=== PATIENT | female | born 1965 | race Caucasian/White ===

== ENCOUNTER 2024-06-22 15:55 | Emergency (ER) | payer OTHER, SELFPAY ==
[2024-06-22 15:56] VITALS: BP 129/71
[2024-06-22 16:22] LABS: Urine Albumin Negative (Neg - Trace); Urine Bilirubin Negative (Negative); Urine Character Clear (Clear); Urine Color Yellow; Urine Glucose Negative (Negative); Urine Ketone Negative (Negative); Urine Leukocyte Negative (Negative); Urine Nitrite Negative (Negative); Urine Occult Blood 2+ (Negative); Urine Urobilinogen Negative (Neg - 1+)
[2024-06-22 16:25] LABS: % Basophils 0.9 % (0-2); % Eosinophils 2.2 % (0-6); % Immature Granulocytes 0.2 % (0-0.5); % Lymphocytes 35.8 % (20.5-51.1); % Monocytes 9.1 % (1.7-9.3); % Neutrophils 51.8 % (42.2-75.2); Absolute Basophils 0.1 10^3/uL (0-0.2); Absolute Eosinophils 0.1 10^3/uL (0-0.7); Absolute Monocytes 0.5 10^3/uL (0.1-0.6); Absolute Neutrophils 2.8 10^3/uL (1.4-6.5); Hematocrit 38.6 % (37.0-47.0); Mean Corp Hgb Conc. 33.7 g/dL (33.0-37.0); Mean Corpuscular Hgb 30.4 pg (27.0-31.0); Mean Corpuscular Volume 90.4 fL (81.0-99.0); Mean Platelet Volume 10.2 fL (7.4-10.4); Nucleated Red Blood Cells % 0 %; Platelet Count 265 10^3/uL (130-400); Red Blood Cell Count 4.27 10^6/uL (4.20-5.40); Red Cell Dist. Width 13.2 % (11.5-14.5); White Blood Cell Count 5.5 10^3/uL (4.8-10.8)
[2024-06-22 16:34] LABS: Urine Squamous Cell >30 /LPF (Few)
[2024-06-22 16:35] LABS: Urine White Cell 0-2 /HPF (0-5)
[2024-06-22 16:41] LABS: ALT (SGPT) 16 U/L (0-35); AST (SGOT) 21 U/L (14-36); Albumin 5.1 g/dl (3.5-5.0); Alkaline Phosphatase 37 U/L (38-126); Blood Urea Nitrogen 14 mg/dl (7-17); Calcium 9.5 mg/dl (8.4-10.2); Carbon Dioxide 29 mmol/L (22-30); Chloride 103 mmol/L (98-107); Glucose 109 mg/dl (70-99); Lipase 80 U/L (23-300); Potassium 4.5 mmol/L (3.5-5.1); Sodium 141 mmol/L (135-145); Total Bilirubin 0.2 mg/dl (0.2-1.3); Total Protein 7.3 g/dl (6.3-8.2); eGFR > 60.00
[2024-06-22 16:52] VITALS: BMI 19.8
[2024-06-22] MEDS: TORADOL 15 MG IV (17:10)
[2024-06-22] MEDS: NSS 1000 IV (17:10)
--- NOTE | 2024-06-22 17:17 | ED.GENMED ---
History of Present Illness
General
Chief Complaint: Abdominal Pain
Source: patient
Exam Limitations: none
Time Seen by Provider: 06/22/24 16:31
Nursing documentation reviewed up to this point in time: agreed with
History of Present Illness
History of Present Illness:
Patient is a 58-year-old female presenting to the emergency department for evaluation of right lower flank pain. Patient reports very intermittent pain in her right lower abdomen/flank over the past 2 weeks. Pain is sharp and lasts up to 30
minutes at a time. Pain appears to come randomly with no correlation to eating, movement, etc. Patient does take ibuprofen which does ease pain. Patient denies any associated nausea, vomiting, anorexia, chest pain, shortness of breath. Patient
denies any vaginal bleeding or discharge. Patient denies any dysuria, or hematuria. No recent trauma. Today symptoms seem to be persisting so she came to the emergency department for evaluation.
Patient states she has not had a menstrual cycle in the past 6 years.
Past History
Past History
ED Past Medical History: Other
ED Past Surgical History: Other
Social History
Tobacco: Non-smoker
Drug: None
Personal:
Living: with family
Employment: Other
Family History
Family History: Other
Review of Systems
Review of Systems
Allergies reviewed?: Yes
All Other Systems: ROS reviewed and negative except as documented in HPI and ROS
Phy Exam
Physical Exam
Physical Exam:
Vitals: Patient's vital signs are stable. Afebrile
General: Patient is very well appearing, no acute distress
Skin: Warm and dry, no rashes or lesions
Head: Normocephalic, atraumatic
Eyes: Sclera nonicteric. EOMs intact. No nystagmus.
Throat: Protecting airway
Neck: Normal ROM, no cervical spine tenderness, no meningismus
Cardiac: Regular rate and rhythm, no murmurs.
Pulm: Normal respiratory effort, no wheezes, rales, rhonchi heard on exam.
Abdomen: Abdomen soft. Mild tenderness in right lower quadrant without rebound tenderness or guarding. No CVA tenderness. No rash or ecchymoses.
Extremities: No evidence of cyanosis or edema. Palpable DP pulses
Neuro: AAOx3. Grossly intact.
Psychiatric: Normal affect.
Course
Orders/Labs/Results
Orders:
Orders
06/22/24 16:08
Complete Blood Count/With Diff Urgent
Comprehensive Metabolic Panel Urgent
Lipase Urgent
06/22/24 16:14
Urinalysis Reflex To Culture Urgent
Date Specimen was Collected: 06/22/24
Time Specimen was Collected: 16:04
Urine Microscopic Reflex Cult Urgent
06/22/24 17:01
Abdomen/Pelvis wo Contrast CT [CT Abd/pelvis Wo Iv Cont] Urgent
Comment:
Reason For Exam: R flank/ lower abdominal pain
0.9% Sodium Chloride 1000 ml [Nss] 1,000 ml IV BOLUS
Ketorolac [Toradol] 15 mg IV NOW STA
Abnormal Lab Results
06/22/24 06/22/24
16:08 16:14
Glucose 109 H mg/dl
(70-99)
Alkaline Phosphatase 37 L U/L
(38-126)
Albumin 5.1 H g/dl
(3.5-5.0)
Ur Occult Blood Reflex 2+ A
(Negative)
Urine RBC 3-6 A /HPF
(0-2)
06/22/24 16:08
06/22/24 16:08
Vital Signs
Initial and Last Documented VS:
Initial Vital Signs
Temp Pulse Resp BP Pulse Ox
98.4 F 86 14 129/71 100
06/22/24 15:56 06/22/24 15:56 06/22/24 15:56 06/22/24 15:56 12/15/24 15:56
Last Documented Vital Signs
Temp Pulse Resp BP Pulse Ox
98.4 F 86 14 129/71 100
06/22/24 15:56 06/22/24 15:56 06/22/24 15:56 06/22/24 15:56 06/22/24 15:56
MDM/Problems Addressed
Differential Diagnosis Includes:
Not limited to: Kidney stone, pyelonephritis, ovarian cyst, uterine fibroid, muscular strain, constipation, doubt appendicitis
MDM/Problems Addressed:
58-year-old female presents with intermittent right lower abdominal pain for the past 2.5 weeks. No associated fever, nausea/vomiting, anorexia, changes in bowel habits, or urinary symptoms. No vaginal bleeding or discharge. Patient is stable
vital signs on arrival�she is afebrile. On exam�patient is very well-appearing, no apparent distress. Heart regular rate rhythm. Lungs clear bilaterally. Abdomen is soft with very mild tenderness in right lower quadrant without rebound
tenderness or guarding. No CVA tenderness. There is no rashes to suggest zoster. Labs and urinalysis were obtained in triage and reviewed. There is no leukocytosis or any abnormalities on CBC. Chemistry without any clinically significant
abnormalities. Urinalysis obtained and does show few RBCs although no evidence of infection. Differential broad other considerations include possible kidney stone versus other pelvic etiology. Very low suspicion for acute appendicitis given
duration of symptoms and considering patient is afebrile with no leukocytosis. Will obtain CT without contrast for further evaluation. Will give Toradol, fluids and reassess
Chronic conditions affecting care:
N/A
Acute Exacerbation and/or Progression of Chronic Illness:
N/A
*Radiology
Radiology exam reviewed: radiology read reviewed
*Pulse Oximetry
Patient hypoxic: no
*EKG
Interpreted by ED Provider?: NA
*Compensation Intern Interpretation
Rate: Compensation Intern- N/A
*Critical Care Note
Total Time (30-74mins, 75-104mins- exclusive of procedures): Not Applicable
Update Note
Update Note:
Update: Patient does have some improvement in pain following Toradol. CT report reviewed. No evidence of kidney stone bilaterally. Evidence of some constipation which may be contributing to patient's symptoms. Also cystic density noted within
the uterus with broad differential other considerations include fibroids. Outpatient pelvic ultrasound recommended to patient that she will follow closely with COMMUNICATIONS PROFESSOR. Incidental finding of gallstones which patient was made aware of with
information for general surgery if needed in future. Appendix normal.
Unknown exact etiology of patient's symptoms although low suspicion for acute infectious process given patient is afebrile with no leukocytosis. Suspect symptoms likely related to either constipation versus possible fibroid. No acute findings
today. Patient will follow closely with COMMUNICATIONS PROFESSOR for outpatient pelvic ultrasound. Patient aware of hematuria and will have this followed up with COMMUNICATIONS PROFESSOR, as well. Lengthy discussion with patient regarding strict return precautions. Patient
well-appearing and stable for discharge to follow-up outpatient. Case discussed with attending physician.
ED Attending Note
-
Portions of this chart may have been created with voice recognition software.� Occasional wrong word or��sound alike� substitutions may have occurred due to the inherent limitations of voice recognition software.
Discharge Plan
Departure
Patient Disposition: Home (Routine Discharge)
Date of Disposition: 06/22/24
Time of Disposition: 19:31
Patient with high blood pressure during this ER visit?: No
Condition: Good
Covid-19: Not Applicable
Discharge Problem:
Abdominal pain
Instructions: Constipation, Adult (DC), Gallstones (DC), Abdominal Pain
Prescriptions:
No Action
prednisone 20 MG tablet
20 mg PO DAILY Qty: 8 0RF
Rx Instructions:
Take 2 pills once a day for 4 days
Referrals:
Jose L Dockery DO [Family Provider] -
Sukh Stacy MD [Active] - As needed
Activity Restrictions/Additional Instructions:
RETURN TO THE EMERGENCY DEPARTMENT WITH ANY FEVER, INTRACTABLE NAUSEA/VOMITING, SEVERE/WORSENING ABDOMINAL PAIN, SEVERE BACK PAIN, LOSS OF APPETITE, WORSENING IN CURRENT SYMPTOMS, OR ANY OTHER CONCERNS
-As discussed�your imaging did show a degree of constipation. You should take MiraLAX and stool softeners. You should increase your fiber intake and stay well-hydrated at home.
-In addition�there was an cystic area in your uterus noted on CT scan which may be contributing to your symptoms today. This is possible this is a fibroid. As discussed that she should have a pelvic ultrasound performed outpatient with your COMMUNICATIONS PROFESSOR
for further evaluation.
-There was also an incidental finding of gallstones. You can follow-up with a general surgeon for evaluation/management as needed. Contact information has been provided for you above. Please return if you have any severe right upper
quadrant/upper abdominal pain, or persistent nausea/vomiting or fevers.
-You continue to take Motrin/Tylenol as a for discomfort. You can apply a heating pad.
-Follow-up with your COMMUNICATIONS PROFESSOR and primary care for further evaluation of today's symptoms
Monitor symptoms closely and return to the emergency department with any acute worsening/new symptoms or any other concerns
Interventions
Interventions:
*Risk Screen - Suicide Last Done: 06/22/24 15:56
*General Assessment Last Done: 06/22/24 15:56
*Neglect/Abuse Screening Last Done: 06/22/24 15:56
ED- Fall Risk Assessment Last Done: 06/22/24 19:25
*ED COVID-19 Vaccine History Last Done: 06/22/24 19:24
*Nursing Disposition Last Done: 06/22/24 19:43
GC-Hzynep-Jthvyzqknk Assessment Last Done: 06/22/24 19:24
Discharge Date and Time
Discharge Date/Time: 06/22/24 19:44
Print Language: ROMANSH
--- NOTE | 2024-06-22 17:57 | EDRN ---
Pain: from 8/10 to a 5-6/10.
== END 2024-06-22 19:44 | disposition home or self-care (01) ==
LOC: EMR 15:55
PROVIDERS: Emergency Medicine; EMERGENCY PHYSICIAN Student in an Organized Health Care Education/Training Program; FAMILY PHYSICIAN Family Medicine
DX: R10.31 Right lower quadrant pain (principal); K80.20 Calculus of gallbladder without cholecystitis without obstruction
CPT/HCPCS: 96374; 96361; 99284; 74176; 80053; 81003; 81015; 83690; 85025